=== PATIENT | female | born 1995 | race Caucasian/White ===

== ENCOUNTER 2020-03-16 11:28 | Emergency (ER) | payer OTHER ==
[2020-03-16] MEDS ORDERED: Lidocaine 1% w/Epinephrine 1:100K 20 ML VIAL ONE (11:54)
[2020-03-16] MEDS ORDERED: Bacitracin 1 PK ONE (12:16)
== END 2020-03-16 12:32 | disposition home or self-care (01) ==
LOC: ERS 11:28
DX: S71.111A Laceration without foreign body, right thigh, initial encounter (principal); F41.9 Anxiety disorder, unspecified; X58.XXXA Exposure to other specified factors, initial encounter
CPT/HCPCS: 12004